=== PATIENT | female | born 1960 | race Caucasian/White ===

== ENCOUNTER 2018-03-05 17:05 | Emergency (ER) | payer SELFPAY ==
--- NOTE | 2018-03-05 18:02 | ER ---
Nurse's Notes [facility] Name: Jaqui Solorzano Age: 57 yrs Sex: Female : 1960 Arrival Date: 03/05/2018 Time: 17:10 Bed 5 Private MD: None, None Diagnosis: Cerebral infarction;Weakness;Tobacco abuse counseling;Tobacco use Presentation: 03/05 17:11 Presenting complaint: Patient states: "My left arm have been giving me issue for 2 aj1 weeks. It numb feeling, I drop things all the time." Reports that the numbness has been constant for the past 2 weeks. Patient ambulated to triage with a steady gait, speech is clear. Transition of care: patient was not received from another setting of care. Onset of symptoms was February 19, 2018. Risk Assessment: Do you want to hurt yourself or someone else? Patient reports no desire to harm self or others. Initial Sepsis Screen: Does the patient meet any 2 criteria? No. Patient's initial sepsis screen is negative. Does the patient have a suspected source of infection? No. Patient's initial sepsis screen is negative. Care prior to arrival: None. 17:11 Method Of Arrival: Ambulatory aj1 17:11 Acuity: ELAN 3 aj1 Triage Assessment: 17:14 General: Appears in no apparent distress. comfortable, Behavior is calm, cooperative, aj1 appropriate for age. Pain: Denies pain. Neuro: Level of Consciousness is awake, alert, obeys commands. Cardiovascular: Patient's skin is warm and dry. Respiratory: Airway is patent Respiratory effort is even, unlabored, Respiratory pattern is regular, symmetrical. 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 - Social history:: Smoking status: Patient uses tobacco products, smokes one pack cigarettes per day. - Ebola Screening: : Patient denies travel to an Ebola-affected area in the 21 days before illness onset. - Family history:: not pertinent. Screenin:25 Abuse screen: Denies threats or abuse. Nutritional screening: No deficits noted. la1 Tuberculosis screening: No symptoms or risk factors identified. The patient has not been NPO before screening. The patient is alert, able to follow commands. The patient does not exhibit slurred or garbled speech The patient is not exhibiting difficulty speaking. The patient does not exhibit difficulty understanding words. The patient is able to swallow own secretions with no drooling or need for suction. Patient tolerated one teaspoon of water. No drooling, immediate coughing, gurgling, or clearing of the throat was noted. The patient tolerated 90mL of water. No drooling, immediate coughing, gurgling, or clearing of the throat was noted. The patient passed the bedside swallow screening. Oral medications may be given as ordered. Contact Physician for further diet orders. Fall Risk None identified. Assessment: 17:26 General: Appears in no apparent distress. Behavior is calm, cooperative. Pain: Denies la1 pain. Neuro: Level of Consciousness is awake, alert, obeys commands, Oriented to person, place, time, situation, Customer Relations Representative are equal bilaterally Moves all extremities. Full function Gait is steady, Speech is normal, is slurred, Facial symmetry appears normal, Pupils are PERRLA, Numbness in left arm. Cardiovascular: Capillary refill < 3 seconds Patient's skin is warm and dry. Respiratory: Airway is patent Respiratory effort is even, unlabored, Respiratory pattern is regular, symmetrical. GI: No signs and/or symptoms were reported involving the gastrointestinal system. : No signs and/or symptoms were reported regarding the genitourinary system. 19:10 Reassessment: Patient appears in no apparent distress at this time. Patient and/or tl2 family updated on plan of care and expected duration. Pain level reassessed. Patient is alert, oriented x 3, equal unlabored respirations, skin warm/dry/pink. Neuro: Level of Consciousness is awake, alert, obeys commands, Oriented to person, place, time, situation, Customer Relations Representative are equal bilaterally Moves all extremities. Full function Gait is steady, Speech is normal, Facial symmetry appears normal. Cardiovascular: Denies chest pain. Respiratory: Airway is patent Respiratory effort is even, unlabored, Respiratory pattern is regular, symmetrical. 20:00 Reassessment: [facility] ETA 45 mins. tl2 20:54 Reassessment: Patient appears in no apparent distress at this time. Patient and/or tl2 family updated on plan of care and expected duration. Pain level reassessed. Patient is alert, oriented x 3, equal unlabored respirations, skin warm/dry/pink. Pt stable and ready for transfer. Vital Signs: 17:14 BP 137 / 86; Pulse 102; Resp 20; Temp 98.4; Pulse Ox 100% on R/A; Weight 68.04 kg (R); aj1 Height 5 ft. 10 in. (177.80 cm) (R); Pain 0/10; 18:43 BP 137 / 97; Pulse 85; Resp 16; Temp 97.1; Pulse Ox 98% on R/A; la1 17:14 Body Mass Index 21.52 (68.04 kg, 177.80 cm) aj1 NIH Stroke Scale Scores: 18:08 NIHSS Score: 4 joseph 18:38 NIHSS Score: 4 la1 ED Course: 17:10 Patient arrived in ED. mr 17:12 None, None is Private Physician. mr 17:14 Triage completed. aj1 17:14 Arm band placed on Patient placed in an exam room. aj1 17:22 Que Ryan, RN is Primary Nurse. la1 17:27 Call light in reach. Side rails up X 1. la1 17:49 Gaudencio Holt MD is Attending Physician. joseph 18:[address] Holt with Cindy at the [facility]. eb 18:[address] Holt for patient transfer consultation. eb 18:[address] Johnston with Dr. Holt for patient transfer consultation. eb 18:19 Patient moved to AR via stretcher. cw1 18:29 CT Head C Spine In Process Unspecified. EDMS 18:29 CT completed. Patient tolerated procedure well. Patient moved back from CT. nj 18:39 Inserted saline lock: 20 gauge in right antecubital area, using aseptic technique. la1 Blood collected. 18:42 XRAY Chest (1 view) In Process Unspecified. EDMS 20:54 No provider procedures requiring assistance completed. Patient transferred, IV remains tl2 in place. Administered Medications: 18:14 Drug: Aspirin Chewable Tablet 324 mg Route: PO; la1 18:14 Follow up: Response: No adverse reaction la1 18:14 Drug: foLIC Acid 1 mg Route: IVPB; Site: right antecubital; la1 18:14 Follow up: IV Status: Completed infusion la1 18:14 Drug: NS 0.9% 1000 ml Route: IV; Rate: 1 bolus; Site: right antecubital; la1 18:14 Follow up: IV Status: Infusion continued upon transfer la1 Outcome: 18:02 ER care complete, transfer ordered by joseph 20:54 Transferred by ground EMS to [facility], Transfer form completed. tl2 20:54 Condition: stable 20:54 Discharge instructions given to patient, Instructed on the need for transfer, Demonstrated understanding of instructions. 20:55 Patient left the ED. tl2 NIH Stroke Scale - NIH Stroke Score Date: 03/05/2018 Time: 18:08 Total Score = 4 1a. Level of Consciousness (LOC) - 0(Alert) 1b. Level of Consciousness (LOC) (Year \\T\\ Age) - 0(Both) 1c. LOC Commands (Open \\T\\ Closes Eyes/Flavor Extractor) - 0(Both) 2. Best Gaze (Lateral Gaze Paresis) - 0(Normal) 3. Visual Field Loss - 0(No visual loss) 4. Facial Palsy - 0(Normal) 5a. Left Arm: Motor (10-second hold) - 1(Drift) 5b. Right Arm: Motor (10-second hold) - 0(No drift) 6a. Left Leg: Motor (5-second hold - always test supine) - 1(Drift) 6b. Right Leg: Motor (5-second hold - always test supine) - 0(No drift) 7. Limb Ataxia (finger/nose \\T\\ heel/horan - test with eyes open) - 2(Present in two limbs) 8. Sensory Loss (pinprick arms/legs/face) - 0(Normal) 9. Best Language: Aphasia (description/naming/reading) - 0(No aphasia) 10. Dysarthria (speech clarity - read or repeat words) - 0(Normal) 11. Extinction and Inattention (visual/tactile/auditory/spatial/personal) - 0(No abnormality) Initials: joseph NIH Stroke Scale - NIH Stroke Score Date: 03/05/2018 Time: 18:38 Total Score = 4 1a. Level of Consciousness (LOC) - 0(Alert) 1b. Level of Consciousness (LOC) (Year \\T\\ Age) - 0(Both) 1c. LOC Commands (Open \\T\\ Closes Eyes/Flavor Extractor) - 0(Both) 2. Best Gaze (Lateral Gaze Paresis) - 0(Normal) 3. Visual Field Loss - 0(No visual loss) 4. Facial Palsy - 0(Normal) 5a. Left Arm: Motor (10-second hold) - 1(Drift) 5b. Right Arm: Motor (10-second hold) - 0(No drift) 6a. Left Leg: Motor (5-second hold - always test supine) - 1(Drift) 6b. Right Leg: Motor (5-second hold - always test supine) - 0(No drift) 7. Limb Ataxia (finger/nose \\T\\ heel/horan - test with eyes open) - 2(Present in two limbs) 8. Sensory Loss (pinprick arms/legs/face) - 0(Normal) 9. Best Language: Aphasia (description/naming/reading) - 0(No aphasia) 10. Dysarthria (speech clarity - read or repeat words) - 0(Normal) 11. Extinction and Inattention (visual/tactile/auditory/spatial/personal) - 0(No abnormality) Initials: la1 Signatures: Dispatcher [employer] EDSteffanie De La Fuente RN RN aj1 Gaudencio Holt MD MD cha Rivera, Dayna mr CarverFunmilayo cw1 Que Ryan RN RN la1 Candice Harding RN RN tl2 Messi Abad Elizabeth eb Corrections: (The following items were deleted from the chart) 18:39 17:25 NIHSS Score: 0 la1 la1
--- NOTE | 2018-03-05 18:03 | EDPHYS ---
Physician Documentation [facility] Name: Jaqui Solorzano Age: 57 yrs Sex: Female : 1960 Arrival Date: 03/05/2018 Time: 17:10 Bed 5 Private MD: None, None ED Physician Gaudencio Holt HPI: 03/05 17:57 This 57 yrs old Female presents to ER via Ambulatory with complaints of joseph Numbness Of Arm. 17:57 The patient or guardian complains of decreased range of motion. The complaints affect joseph the left bicep, dorsal aspect of left forearm, left tricep and palmar aspect of left forearm. Context: The problem was sustained at home. Onset: The symptoms/episode began/occurred 14 day(s) ago. Treatment prior to arrival includes: no previous treatment. 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 - Social history:: Smoking status: Patient uses tobacco products, smokes one pack cigarettes per day. - Ebola Screening: : Patient denies travel to an Ebola-affected area in the 21 days before illness onset. - Family history:: not pertinent. ROS: 17:57 Constitutional: Negative for fever, chills, and weight loss, Eyes: Negative for injury, joseph pain, redness, and discharge, ENT: Negative for injury, pain, and discharge, Neck: Negative for injury, pain, and swelling, Cardiovascular: Negative for chest pain, palpitations, and edema, Respiratory: Negative for shortness of breath, cough, wheezing, and pleuritic chest pain, Abdomen/GI: Negative for abdominal pain, nausea, vomiting, diarrhea, and constipation, Back: Negative for injury and pain, : Negative for injury, bleeding, discharge, and swelling, MS/Extremity: Negative for injury and deformity, Skin: Negative for injury, rash, and discoloration, Psych: Negative for depression, anxiety, suicide ideation, homicidal ideation, and hallucinations, Allergy/Immunology: Negative for hives, rash, and allergies, Endocrine: Negative for neck swelling, polydipsia, polyuria, polyphagia, and marked weight changes, Hematologic/Lymphatic: Negative for swollen nodes, abnormal bleeding, and unusual bruising. 17:57 Neuro: Positive for weakness, of the left arm and left leg. Exam: 17:57 Constitutional: This is a well developed, well nourished patient who is awake, alert, joseph and in no acute distress. Head/Face: Normocephalic, atraumatic. Eyes: Pupils equal round and reactive to light, extra-ocular motions intact. Lids and lashes normal. Conjunctiva and sclera are non-icteric and not injected. Cornea within normal limits. Periorbital areas with no swelling, redness, or edema. ENT: Nares patent. No nasal discharge, no septal abnormalities noted. Tympanic membranes are normal and external auditory canals are clear. Oropharynx with no redness, swelling, or masses, exudates, or evidence of obstruction, uvula midline. Mucous membranes moist. Neck: Trachea midline, no thyromegaly or masses palpated, and no cervical lymphadenopathy. Supple, full range of motion without nuchal rigidity, or vertebral point tenderness. No Meningismus. Chest/axilla: Normal chest wall appearance and motion. Nontender with no deformity. No lesions are appreciated. Cardiovascular: Regular rate and rhythm with a normal S1 and S2. No gallops, murmurs, or rubs. Normal PMI, no JVD. No pulse deficits. Respiratory: Lungs have equal breath sounds bilaterally, clear to auscultation and percussion. No rales, rhonchi or wheezes noted. No increased work of breathing, no retractions or nasal flaring. Abdomen/GI: Soft, non-tender, with normal bowel sounds. No distension or tympany. No guarding or rebound. No evidence of tenderness throughout. Back: No spinal tenderness. No costovertebral tenderness. Full range of motion. Female : Normal external genitalia. Skin: Warm, dry with normal turgor. Normal color with no rashes, no lesions, and no evidence of cellulitis. MS/ Extremity: Pulses equal, no cyanosis. Neurovascular intact. Full, normal range of motion. Psych: Awake, alert, with orientation to person, place and time. Behavior, mood, and affect are within normal limits. 17:57 Neuro: Orientation: is normal, appropriate for stated age, no acute changes, Mentation: is normal, appropriate for stated age, no acute changes, Memory: is normal, appropriate for stated age, no acute changes, Cranial nerves: grossly normal, is grossly normal based on the patient's age, no acute changes, Cerebellar function: dysmetria is noted on the left, Motor: moves all fours, strength is 4/5 in the left leg, Strength is 3/5 in the left arm, Sensation: no obvious gross deficits, appropriate Gait: is steady, appropriate for age, seizure activity, is not displayed by the patient. Vital Signs: 17:14 BP 137 / 86; Pulse 102; Resp 20; Temp 98.4; Pulse Ox 100% on R/A; Weight 68.04 kg (R); aj1 Height 5 ft. 10 in. (177.80 cm) (R); Pain 0/10; 18:43 BP 137 / 97; Pulse 85; Resp 16; Temp 97.1; Pulse Ox 98% on R/A; la1 17:14 Body Mass Index 21.52 (68.04 kg, 177.80 cm) aj1 NIH Stroke Scale Scores: 18:08 NIHSS Score: 4 joseph 18:38 NIHSS Score: 4 la1 MDM: 17:49 Patient medically screened. joseph 18:01 Data reviewed: vital signs, nurses notes, lab test result(s), EKG, radiologic studies. [facility] 03/05 17:57 Order name: Basic Metabolic Panel; Complete Time: 19:31 joseph 03/05 17:57 Order name: CBC with Diff; Complete Time: 19:31 joseph 03/05 17:57 Order name: LFT's; Complete Time: 19:31 joseph 03/05 17:57 Order name: Magnesium; Complete Time: 19:31 joseph 03/05 17:57 Order name: NT PRO-BNP; Complete Time: 19:31 jsoeph 03/05 17:57 Order name: PT-INR; Complete Time: 19:31 joseph 03/05 17:57 Order name: Troponin (emerg Dept Use Only); Complete Time: 19:31 joseph 03/05 17:57 Order name: XRAY Chest (1 view); Complete Time: 19:31 joseph 03/05 17:57 Order name: CT Head C Spine; Complete Time: 19:31 joseph 03/05 17:57 Order name: Sed Rate; Complete Time: 19:31 [facility] 03/05 17:57 Order name: CRP; Complete Time: 19:31 [facility] 03/05 17:57 Order name: Urine Culture [facility] 03/05 17:57 Order name: EKG; Complete Time: 17:58 [facility] 03/05 17:57 Order name: Cardiac monitoring; Complete Time: 18:14 [facility] 03/05 17:57 Order name: EKG - Nurse/Tech; Complete Time: 18:14 [facility] 03/05 17:57 Order name: IV Saline Lock; Complete Time: 18:14 [facility] 03/05 17:57 Order name: Labs collected and sent; Complete Time: 18:14 [facility] 03/05 17:57 Order name: O2 Per Protocol; Complete Time: 18:14 [facility] 03/05 17:57 Order name: O2 Sat Monitoring; Complete Time: 18:15 [facility] 03/05 17:57 Order name: Urine Dipstick-Ancillary (obtain specimen); Complete Time: 18:34 [facility] 03/05 19:32 Order name: PO challenge: juice; Complete Time: 20:01 [facility] Administered Medications: 18:14 Drug: Aspirin Chewable Tablet 324 mg Route: PO; la1 18:14 Follow up: Response: No adverse reaction la1 18:14 Drug: foLIC Acid 1 mg Route: IVPB; Site: right antecubital; la1 18:14 Follow up: IV Status: Completed infusion la1 18:14 Drug: NS 0.9% 1000 ml Route: IV; Rate: 1 bolus; Site: right antecubital; la1 18:14 Follow up: IV Status: Infusion continued upon transfer la1 Disposition: 03/05/18 18:02 Transfer ordered to [facility]. Diagnosis are Cerebral infarction, Weakness, Tobacco abuse counseling, Tobacco use. - Reason for transfer: Higher level of care. - [facility]. - Condition is Stable. - Problem is new. - Symptoms have improved. NIH Stroke Scale - NIH Stroke Score Date: 03/05/2018 Time: 18:08 Total Score = 4 1a. Level of Consciousness (LOC) - 0(Alert) 1b. Level of Consciousness (LOC) (Year \T\ Age) - 0(Both) 1c. LOC Commands (Open \T\ Closes Eyes/Knitting Supervisor) - 0(Both) 2. Best Gaze (Lateral Gaze Paresis) - 0(Normal) 3. Visual Field Loss - 0(No visual loss) 4. Facial Palsy - 0(Normal) 5a. Left Arm: Motor (10-second hold) - 1(Drift) 5b. Right Arm: Motor (10-second hold) - 0(No drift) 6a. Left Leg: Motor (5-second hold - always test supine) - 1(Drift) 6b. Right Leg: Motor (5-second hold - always test supine) - 0(No drift) 7. Limb Ataxia (finger/nose \T\ heel/horan - test with eyes open) - 2(Present in two limbs) 8. Sensory Loss (pinprick arms/legs/face) - 0(Normal) 9. Best Language: Aphasia (description/naming/reading) - 0(No aphasia) 10. Dysarthria (speech clarity - read or repeat words) - 0(Normal) 11. Extinction and Inattention (visual/tactile/auditory/spatial/personal) - 0(No abnormality) Initials: [facility] NIH Stroke Scale - NIH Stroke Score Date: 03/05/2018 Time: 18:38 Total Score = 4 1a. Level of Consciousness (LOC) - 0(Alert) 1b. Level of Consciousness (LOC) (Year \T\ Age) - 0(Both) 1c. LOC Commands (Open \T\ Closes Eyes/Knitting Supervisor) - 0(Both) 2. Best Gaze (Lateral Gaze Paresis) - 0(Normal) 3. Visual Field Loss - 0(No visual loss) 4. Facial Palsy - 0(Normal) 5a. Left Arm: Motor (10-second hold) - 1(Drift) 5b. Right Arm: Motor (10-second hold) - 0(No drift) 6a. Left Leg: Motor (5-second hold - always test supine) - 1(Drift) 6b. Right Leg: Motor (5-second hold - always test supine) - 0(No drift) 7. Limb Ataxia (finger/nose \T\ heel/horan - test with eyes open) - 2(Present in two limbs) 8. Sensory Loss (pinprick arms/legs/face) - 0(Normal) 9. Best Language: Aphasia (description/naming/reading) - 0(No aphasia) 10. Dysarthria (speech clarity - read or repeat words) - 0(Normal) 11. Extinction and Inattention (visual/tactile/auditory/spatial/personal) - 0(No abnormality) Initials: la1 Signatures: Dispatcher [employer] Steffanie Echavarria, RN RN aj1 Gaudencio Holt MD MD cha Attema, Lee, RN RN la1 Candice Harding, JESUS RN tl2 Corrections: (The following items were deleted from the chart) 18:02 18:02 03/05/2018 18:02 Transfer ordered to [facility]. joseph Diagnosis is Cerebral infarction; Weakness. Reason for transfer: Higher level of care. [facility] [place]. Condition is Stable. Problem is new. Symptoms have improved. joseph 20:55 18:02 03/05/2018 18:02 Transfer ordered to [facility]. tl2 Diagnosis is Cerebral infarction; Weakness; Tobacco abuse counseling; Tobacco use. Reason for transfer: Higher level of care. [facility] [place]. Condition is Stable. Problem is new. Symptoms have improved. joseph
[2018-03-05] MEDS ORDERED: ASPIRIN 81 MG CHEWABLE TABLET ONE (18:09)
[2018-03-05] MEDS ORDERED: FOLIC ACID 5 MG/ML VIAL ONE (18:10)
[2018-03-05] MEDS ORDERED: NA CHLORIDE 0.9% 1,000 ML ONE (18:10)
[2018-03-05 18:22] LABS: Absolute Lymphocytes (CBC) 1.9 K/uL (0.7-4.9); Absolute Monocytes 0.5 K/uL (0.1-1.3); Absolute Neutrophil 4.3 K/uL (1.8-8.0); Basophils % 1.2 % (0-1.3); Eosinophils % 2.6 % (0-4.4); Hematocrit 40.3 % (36.0-45.0); Lymphocytes % 27.3 % (15.3-44.8); MCH 32.7 pg (27.0-35.0); MCV 94.3 fL (80-100); MPV 6.8 fL (7.6-11.3); Monocytes % 7.6 % (3.3-12.3); RBC Red Blood Cell Count 4.27 M/uL (3.86-4.86)
[2018-03-05 18:30] LABS: Protime INR 0.88
[2018-03-05 18:39] LABS: ALT/SGPT 47 U/L (12-78); AST/SGOT 23 U/L (15-37); Albumin 4.1 g/dL (3.4-5.0); Alkaline Phosphatase 117 U/L (45-117); BUN Blood Urea Nitrogen 15 mg/dL (7-18); Bicarbonate 28 mmol/L (21-32); Bilirubin Direct < 0.1 mg/dL (0-0.2); Bilirubin Total 0.3 mg/dL (0.2-1.0); C-Reactive Protein 5.06 mg/L (<3.00); Glucose Level 68 mg/dL (74-106); Magnesium 2.3 mg/dL (1.8-2.4); NT PRO-BNP 53 pg/mL (<125); Potassium 3.7 mmol/L (3.5-5.1); Protein, Total 7.7 g/dL (6.4-8.2); Sodium Level 142 mmol/L (136-145); Troponin (Emerg Dept Use Only) < 0.02 ng/mL (0.0-0.045)
--- NOTE | 2018-03-05 18:47 | RAD REPORT ---
EXAM DESCRIPTION: RAD - Chest Single View - 03/05/2018 6:41 pm CLINICAL HISTORY: COUGH Chest pain. COMPARISON: No comparisons FINDINGS: Portable technique limits examination quality. The lungs are grossly clear. The heart is normal in size. No displaced fractures. IMPRESSION: No acute intrathoracic process suspected.
--- NOTE | 2018-03-05 18:47 | RAD REPORT ---
EXAM DESCRIPTION: CT - [id number] - 03/05/2018 6:30 pm CLINICAL HISTORY: Trauma, head and neck injury. PAIN COMPARISON: <Comparisons> TECHNIQUE: Axial 5 mm thick images of the head were obtained. Axial 2 mm thick images of the cervical spine were obtained with sagittal and coronal reconstruction images generated and reviewed. All CT scans are performed using dose optimization technique as appropriate and may include automated exposure control or mA/KV adjustment according to patient size. FINDINGS: CT HEAD WITHOUT CONTRAST: No acute hemorrhage, hydrocephalus or extra-axial collection is identified.No areas of brain edema or midline shift. Mild polypoid mucosal thickening is seen in the maxillary antra.The calvarium is intact. CT CERVICAL SPINE WITHOUT CONTRAST: No fracture or subluxation.No prevertebral soft tissues swelling is identified. IMPRESSION: No acute intracranial or cervical spine findings.
--- NOTE | 2018-03-06 07:34 | EKG ---
Test Date: 2018-03-05 Test Time: 18:19:01 Technical Programs Manager: SARA MEASUREMENT RESULTS: Intervals: Rate: 87 HI: 148 QRSD: 74 QT: 368 QTc: 442 [place]: P: 57 HI: 148 QRS: 38 T: 51 INTERPRETIVE STATEMENTS: Normal sinus rhythm Normal ECG No previous ECG available for comparison Electronically Signed On 03-06-18 07:33:40 CLOTH MERCERIZER BACK TENDER by Abhijeet Tompkins
== END 2018-03-05 20:55 | disposition short-term general hospital (02) ==
LOC: ER 17:05
DX: I63.9 Cerebral infarction, unspecified (principal); R29.704 NIHSS score 4; F17.210 Nicotine dependence, cigarettes, uncomplicated; Z71.6 Tobacco abuse counseling; Z88.0 Allergy status to penicillin
CPT/HCPCS: 36415; 70450; 71045; 72125; 80048; 80076; 83735; 83880; 84484; 85025; 85610; 85652; 86140; 87086; 87088; 93005; 96374; 99285; J7030

== ENCOUNTER 2024-01-25 11:09 | Emergency (ER) | payer SELFPAY, OTHER ==
[2024-01-25] MEDS ORDERED: ONDANSETRON 4 MG/2 ML VIAL ONE (11:29)
[2024-01-25] MEDS ORDERED: MORPHINE 4 MG/ML SYR ONE (11:29)
[2024-01-25 11:36] LABS: Absolute Basophils 0.1 K/uL (0-0.5); Absolute Eosinophils 0.2 K/uL (0-0.5); Absolute Lymphocytes (CBC) 2.4 K/uL (0.7-4.9); Absolute Monocytes 0.5 K/uL (0.1-1.3); Absolute Neutrophil 4.3 K/uL (1.8-8.0); Basophils % 0.9 % (0-1.3); Eosinophils % 2.6 % (0-4.4); Hematocrit 41.9 % (36.0-45.0); Hemoglobin 13.9 g/dL (12.0-15.0); Lymphocytes % 32.5 % (15.3-44.8); MCH 31.7 pg (27.0-35.0); MCHC 33.2 g/dL (32.0-36.0); MCV 95.3 fL (80-100); MPV 6.5 fL (7.6-11.3); Monocytes % 6.5 % (3.3-12.3); Neutrophils % 57.5 % (41.7-73.7); Platelets 283 thou/uL (152-406); Red Cell Distribution Width 14.4 % (12.1-15.2)
[2024-01-25 12:01] LABS: ALT/SGPT 34 U/L (13-56); AST/SGOT 20 U/L (15-37); Albumin 3.9 g/dL (3.4-5.0); Albumin/Globulin Ratio 1.1 (1.1-1.8); Alkaline Phosphatase 99 U/L (45-117); Anion Gap 6.4 mEq/L (5.0-15.0); BUN Blood Urea Nitrogen 14 mg/dL (7-18); Bicarbonate 27 mEq/L (21-32); Bilirubin Direct < 0.2 mg/dL (0-0.2); Bilirubin Total 0.2 mg/dL (0.2-1.0); Globulin 3.7 g/dL (2.3-3.5); Glomerular Filtration Rate 54 ml/min (=/>90); Glucose Level 106 mg/dL (74-106); Potassium 4.4 mEq/L (3.5-5.1); Protein, Total 7.6 g/dL (6.4-8.2); Sodium Level 137 mEq/L (136-145); Troponin High Sensitivity 3.6 pg/mL (<58.9)
--- NOTE | 2024-01-25 13:09 | RAD REPORT ---
EXAM: CT brain without contrast HISTORY: TRAUMA COMPARISON: 03/05/2018 TECHNIQUE: Multiple contiguous axial images were obtained and a CT of the brain without contrast. Sag ittal and coronal reformats were performed. One or more of the following dose reduction techniques were used: Automated exposure control, adjust ment of the mA and/or kV according to patient size, and/or iterative reconstruction. FINDINGS: No evidence of hydrocephalus, intracranial hemorrhage, or extra-axial fluid collection. The brain is normal in morphology. No evidence of midline shift or areas of brain edema. The calvarium is intact. The visualized paranasal sinuses and mastoid air cells are essentially clear . IMPRESSION: No evidence of acute intracranial abnormality. EXAM: CT of the cervical spine without contrast HISTORY: Neck pain, injury TRAUMA COMPARISON: None TECHNIQUE: Multiple contiguous axial images were obtained in a CT of the cervical spine without contr ast. Sagittal and coronal reformats were performed. FINDINGS: The vertebral bodies demonstrate normal height and alignment. No evidence of acute fracture or subluxation.. No degenerative changes are present. No prevertebral soft tissue swelling is seen. The posterior facets are well aligned. Normal alignment of the skull base with the cervical spine is seen. The lung apices are unremarkable. IMPRESSION: No evidence of acute osseous abnormality of the cervical spine.
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
[2024-01-25] MEDS ORDERED: LORazepam 2 MG/ML VIAL ONE (13:58)
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
[2024-01-25] MEDS ORDERED: FENTANYL CITR 100 MCG/2 ML ONE (15:22)
[2024-01-25] MEDS ORDERED: KETOROLAC 30 MG/ML INJ ONE (15:22)
[2024-01-25 18:37] VITALS: TEMP 97.4
[2024-01-25 18:43] VITALS: BP 101/68
[2024-01-25 18:44] VITALS: O2SAT 97
--- NOTE | 2024-01-26 11:52 | EKG ---
Test Date: 2024-01-25 Test Time: 13:41:06 Leadership Intern: PRABHA MEASUREMENT RESULTS: Intervals: Rate: 81 IL: 154 QRSD: 82 QT: 390 QTc: 453 [place]: P: 68 IL: 154 QRS: 34 T: 36 INTERPRETIVE STATEMENTS: Normal sinus rhythm Normal ECG Compared to ECG 01/25/2024 12:22:04 No significant changes Electronically Signed On 01-26-24 11:50:29 CDT by Bird Piña
--- NOTE | 2024-01-26 11:53 | EKG ---
Test Date: 2024-01-25 Test Time: 12:22:04 Senior Software Systems Engineer: PRABHA MEASUREMENT RESULTS: Intervals: Rate: 75 IN: 160 QRSD: 78 QT: 406 QTc: 453 [place]: P: 75 IN: 160 QRS: 36 T: 44 INTERPRETIVE STATEMENTS: Normal sinus rhythm Normal ECG Compared to ECG 03/05/2018 18:19:01 No significant changes Electronically Signed On 01-26-24 11:50:53 CDT by Bird Piña
== END 2024-01-25 16:25 | disposition home or self-care (01) ==
LOC: ER 11:09
DX: S22.22XA Fracture of body of sternum, initial encounter for closed fracture (principal); S00.81XA Abrasion of other part of head, initial encounter; V89.2XXA Person injured in unspecified motor-vehicle accident, traffic, initial encounter; F17.210 Nicotine dependence, cigarettes, uncomplicated
CPT/HCPCS: 36415; 70450; 71260; 72125; 74177; 80048; 80076; 84484; 85025; 93005; 96374; 96375; 99285; J2405; J3010; Q9967